=== PATIENT | female | born 1985 | race Two or more races ===

== ENCOUNTER 2017-08-03 11:12 | Emergency (ER) | payer OTHER ==
[~2017-08-03] VITALS: Ht 152.4 cm; Wt 61.7 kg
[2017-08-03 11:38] VITALS: BP 151/112
[2017-08-03] MEDS ORDERED: ACETAMINOPHEN/CODEINE#3 (300/30mg) TAB PO ONE (12:15)
[2017-08-03] MEDS ORDERED: TETANUS-DIPTH-ACEL PERTUSSIS 0.5ML SYRG IM ONE (12:45)
== END 2017-08-03 12:56 | disposition home or self-care (01) ==
LOC: ER 11:12
DX: S01.01XA Laceration without foreign body of scalp, initial encounter (principal); W19.XXXA Unspecified fall, initial encounter; Y93.89 Activity, other specified; Y99.8 Other external cause status; Y92.89 Other specified places as the place of occurrence of the external cause
CPT/HCPCS: 12001; 70450; 81025; 90715; 96372

== ENCOUNTER 2019-09-19 09:39 | Inpatient (IN) | payer OTHER ==
[~2019-09-19] VITALS: Ht 152.4 cm; Wt 65.7 kg
[2019-09-19] MEDS ORDERED: SODIUM CHLORIDE 0.9% 1,000 ML IV ONE (10:09)
[2019-09-19] MEDS ORDERED: METOCLOPRAMIDE HCL 5MG/ml INJ 2ml VIAL IV ONE (10:15)
[2019-09-19] MEDS ORDERED: KETOROLAC TROMETH 15 mg/ml 1ML VL IV ONE (10:15)
[2019-09-19 11:05] LABS: Basophils # (auto) 0 10 ^3/uL (0-0.2); Basophils % (auto) 0.2 % (0.0-2.0); Eosinophils # (auto) 0 10 ^3/uL (0-0.8); Hematocrit 40.8 % (36.0-46.0); Hemoglobin 13.7 g/dL (12.2-16.2); Lymphocytes # (auto) 0.7 10 ^3/uL (0.4-5.4); Lymphocytes % (auto) 5.4 % (10.0-50.0); Mean Corpuscular Hemoglobin 30.1 pg (28.0-32.0); Mean Corpuscular Hgb Conc. 33.5 g/dL (32.0-36.0); Monocytes # (auto) 0.5 10 ^3/uL (0-1.3); Monocytes % (auto) 3.9 % (0.0-12.0); Neutrophils # (auto) 11.7 10 ^3/uL (1.6-8.6); Neutrophils % (auto) 90.5 % (37.0-80.0); Nucleated Red Blood Cells % 0.1 %; Platelet Count (auto) 272 10^3/uL (140-450); Red Blood Cells 4.54 10^6/uL (4.0-5.20); Red Cell Distribution Width 13.3 % (11.8-14.3); White Blood Cell 12.9 10^3/uL (4.4-10.8)
[2019-09-19 11:23] LABS: Albumin 3.8 g/dL (3.4-5.0); Calcium 9.1 mg/dL (8.5-10.1); Magnesium 2.5 mg/dL (1.6-2.6); Potassium 3.7 mmol/L (3.5-5.1)
[2019-09-19 11:27] LABS: Bilirubin, Total 1.4 mg/dL (0.2-1.0); Total Protein 8.8 g/dL (6.4-8.2)
[2019-09-19] MEDS ORDERED: KETOROLAC TROMETH 30 MG/ML 1ML VIAL IV ONE ×2 (11:30)
[2019-09-19 11:44] LABS: Urine Bacteria FEW /hpf (None Seen); Urine Blood 1+ /uL (Negative); Urine Specific Gravity 1.014 (1.001-1.035); Urine WBC 319 /hpf (0 - 5)
[2019-09-19] MEDS ORDERED: cefTRIAXone 1GM/50ML D5W 50 ML IV ONE (12:45)
[2019-09-19] MEDS ORDERED: ONDANSETRON HCL 4 MG/2 ML VIAL IV PRN (13:00)
[2019-09-19] MEDS ORDERED: NITROGLYCERIN 0.4 MG SL TAB SL PRN (13:00)
[2019-09-19] MEDS ORDERED: FAMOTIDINE (10MG/ML) 2ML VL IV ONE (13:00)
[2019-09-19] MEDS ORDERED: MORPHINE SULF INJ 2 MG/ML SYRINGE 1ML IV PRN (13:00)
--- NOTE | 2019-09-19 13:20 | NUR ---
MED/SURG admit from [facility] admitted to MED/SURG unit after SBAR received. Patient oriented to Jen Estrella, primary RN, unit, room, bed, and unit policies regarding patient care and visiting hours. Patient ON ROOM AIR, weighed by bedscale and encouraged to call if they need something. All questions and concerns addressed, patient verbalized understanding. Note:
[2019-09-19] MEDS: metroNIDAZOLE 500MG/100ML 100 ML IV SCH ×2 (14:01→21:30)
[2019-09-19] MEDS: SODIUM CHLORIDE 0.9% 1,000 ML IV SCH ×2 (14:02→22:30)
[2019-09-19 14:05] LABS: INR 1.01 (0.9-1.15)
[2019-09-19 14:32] VITALS: BP 130/82
[2019-09-19] MEDS ORDERED: LEVO25TA6 PO (15:04)
[2019-09-19] MEDS: ACETAMINOPHEN 500 MG TAB PO PRN (15:05)
[2019-09-19] MEDS: MORPHINE SULF INJ 2 MG/ML SYRINGE 1ML IV PRN ×2 (16:42→21:23)
[2019-09-19 17:16] VITALS: BP 126/83
--- NOTE | 2019-09-19 17:44 | NUR ---
PAGED HOSPITALIST PATIENT HAS FEVER 101.5
--- NOTE | 2019-09-19 18:41 | NUR ---
DR. ARGUETA CALLED BACK ORDERS RECEIVED
[2019-09-19] MEDS ORDERED: ACETAMINOPHEN 500 MG TAB PO ONE (18:45)
--- NOTE | 2019-09-19 19:00 | NUR ---
Opening Shift Note Assumed care of patient, awake and alert. No S/S of distress/SOB or pain. Instructed on POC and to call for assist PRN, will continue to monitor for changes Q1hr and PRN.
[2019-09-19 20:00] VITALS: BP 121/77
[2019-09-19 22:00] VITALS: BP 121/77
[2019-09-20] VITALS (13 sets, daily range): BP systolic 98–128; BP diastolic 53–82
[2019-09-20] MEDS: metroNIDAZOLE 500MG/100ML 100 ML IV SCH ×3 (05:33→21:38)
[2019-09-20] MEDS: ACETAMINOPHEN 500 MG TAB PO PRN (05:34)
[2019-09-20 05:54] LABS: Basophils # (auto) 0.1 10 ^3/uL (0-0.2); Basophils % (auto) 0.5 % (0.0-2.0); Eosinophils # (auto) 0 10 ^3/uL (0-0.8); Eosinophils % (auto) 0.1 % (0.0-7.0); Hematocrit 34.7 % (36.0-46.0); Hemoglobin 11.6 g/dL (12.2-16.2); Mean Corpuscular Hemoglobin 29.9 pg (28.0-32.0); Mean Corpuscular Hgb Conc. 33.5 g/dL (32.0-36.0); Mean Corpuscular Volume 89.4 fL (80.0-100.0); Monocytes # (auto) 0.9 10 ^3/uL (0-1.3); Monocytes % (auto) 7.3 % (0.0-12.0); Neutrophils % (auto) 84.1 % (37.0-80.0); Platelet Count (auto) 231 10^3/uL (140-450); Red Blood Cells 3.89 10^6/uL (4.0-5.20); Red Cell Distribution Width 13.5 % (11.8-14.3); White Blood Cell 11.9 10^3/uL (4.4-10.8)
[2019-09-20 06:00] LABS: Potassium 3.6 mmol/L (3.5-5.1)
[2019-09-20 06:03] LABS: INR 1.07 (0.9-1.15); Partial Thromboplastin Time 32.7 sec (23.64-32.05)
[2019-09-20 06:08] LABS: BUN/Creatinine Ratio 8.8; Bilirubin, Total 1.1 mg/dL (0.2-1.0); Calcium 8.6 mg/dL (8.5-10.1); Total Protein 7.1 g/dL (6.4-8.2)
[2019-09-20] MEDS: LEVOTHYROXINE SODIUM 25 MCG TAB PO SCH (06:36)
[2019-09-20] MEDS: MORPHINE SULF INJ 2 MG/ML SYRINGE 1ML IV PRN (06:44)
[2019-09-20] MEDS ORDERED: MIDAZOLAM HCL 1MG/1ML-2 ML VIAL ONE (07:50)
[2019-09-20] MEDS ORDERED: fentaNYL CITRATE 100 MCG/2 ML VL ONE (07:50)
--- NOTE | 2019-09-20 07:51 | NUR ---
Patient taken down to OR. V/S stable. No s/s of distress noted.
[2019-09-20] MEDS ORDERED: ROCURONIUM 10MG/ML 10ML VIAL IV ONE (07:53)
[2019-09-20] MEDS ORDERED: PROPOFOL 10 MG/ML 20 ML IV ONE (07:53)
[2019-09-20] MEDS ORDERED: SUCCINYLCHOLINE CHLORIDE 20 MG/ML 10ML VIAL IV ONE (07:55)
[2019-09-20] MEDS ORDERED: ceFAZolin 1GM/50ML 50 ML IV ONE (08:02)
[2019-09-20] MEDS ORDERED: ONDANSETRON HCL 4 MG/2 ML VIAL ONE (08:35)
[2019-09-20] MEDS ORDERED: METOCLOPRAMIDE HCL 5MG/ml INJ 2ml VIAL ONE (08:36)
[2019-09-20] MEDS ORDERED: DexAMETHasone SOD PHOS 10MG/1ML VIAL INJ ONE (08:36)
[2019-09-20] MEDS ORDERED: POVIDONE IODINE 10 % TOPICAL OINT 30GM TOP ONE (08:41)
[2019-09-20] MEDS ORDERED: GLYCOPYRROLATE 0.2 MG/ML 1ML VIAL ONE (08:49)
[2019-09-20] MEDS: HYDROmorphone HCL 2 MG/ML VL IV PRN ×4 (09:35→21:56)
[2019-09-20] MEDS ORDERED: HYDROmorphone HCL 2 MG/ML VL ONE (09:35)
[2019-09-20] MEDS: SODIUM CHLORIDE 0.9% 1,000 ML IV SCH ×2 (10:00→19:09)
--- NOTE | 2019-09-20 10:20 | NUR ---
Adrienne mukherjee. informed of tachypnea,CO2 level, O2 Saturation MD spoke with Patients regarding patient baseline and POC. Per Md transfer patient to [place]. New orders received see emr for orders. Addendum: 09/20/19 at 1142 by CHAMP DOSHI RN RN wrong patient
[2019-09-20] MEDS: FAMOTIDINE (10MG/ML) 2ML VL IV SCH (10:22)
[2019-09-20] MEDS: PANTOPRAZOLE 40 MG/10 ML VIAL INJ IV SCH (10:23)
[2019-09-20] MEDS: cefTRIAXone 1GM/50ML D5W 50 ML IV SCH (10:26)
[2019-09-20] MEDS: D5W/SOD CHL 0.45%/KCL 20MEQ 1,000 ML IV SCH ×2 (12:00→19:00)
[2019-09-20] MEDS ORDERED: ceFAZolin 1GM/50ML 50 ML IV SCH (14:00)
[2019-09-20] MEDS: ONDANSETRON HCL 4 MG/2 ML VIAL IV PRN ×2 (16:32→21:56)
--- NOTE | 2019-09-20 17:05 | NUR ---
ASSESSED PATIENTS BOWEL SOUNDS NOTICED DRAINAGE ON ABDOMINAL BINDER ON INCISION ABOVE BELLY BUTTON, INFORMED DOCTOR FISCHL OF DRAINAGE, PER MD CHANGE OUT DRESSING.
--- NOTE | 2019-09-20 20:15 | NUR ---
Pt ambulating on East floor. No distress reported.
--- NOTE | 2019-09-20 22:00 | NUR ---
No bowel sounds Dressing clean, dry and intact Abdominal binder in place.
[2019-09-21] MEDS: SODIUM CHLORIDE 0.9% 1,000 ML IV SCH (05:00)
[2019-09-21] MEDS: D5W/SOD CHL 0.45%/KCL 20MEQ 1,000 ML IV SCH ×2 (05:00→14:24)
[2019-09-21 05:46] VITALS: BP 92/59
[2019-09-21 05:47] LABS: Basophils # (auto) 0 10 ^3/uL (0-0.2); Basophils % (auto) 0.2 % (0.0-2.0); Eosinophils # (auto) 0 10 ^3/uL (0-0.8); Hematocrit 31.3 % (36.0-46.0); Hemoglobin 10.5 g/dL (12.2-16.2); Lymphocytes # (auto) 0.8 10 ^3/uL (0.4-5.4); Lymphocytes % (auto) 7.9 % (10.0-50.0); Mean Corpuscular Hemoglobin 30.3 pg (28.0-32.0); Mean Corpuscular Hgb Conc. 33.6 g/dL (32.0-36.0); Mean Corpuscular Volume 90.1 fL (80.0-100.0); Monocytes # (auto) 0.8 10 ^3/uL (0-1.3); Monocytes % (auto) 7.4 % (0.0-12.0); Neutrophils % (auto) 84.5 % (37.0-80.0); Platelet Count (auto) 225 10^3/uL (140-450); Red Blood Cells 3.47 10^6/uL (4.0-5.20); Red Cell Distribution Width 13.5 % (11.8-14.3); White Blood Cell 10.6 10^3/uL (4.4-10.8)
[2019-09-21] MEDS: ONDANSETRON HCL 4 MG/2 ML VIAL IV PRN ×3 (05:52→21:47)
[2019-09-21] MEDS: HYDROmorphone HCL 2 MG/ML VL IV PRN (05:53)
[2019-09-21] MEDS: metroNIDAZOLE 500MG/100ML 100 ML IV SCH ×3 (06:03→21:48)
[2019-09-21 06:07] LABS: BUN/Creatinine Ratio 11.9; Calcium 8.4 mg/dL (8.5-10.1); Potassium 4.1 mmol/L (3.5-5.1)
[2019-09-21] MEDS: LEVOTHYROXINE SODIUM 25 MCG TAB PO SCH (06:44)
--- NOTE | 2019-09-21 06:45 | NUR ---
Bowel sounds present in all 4 quadrants.
[2019-09-21 09:00] VITALS: BP 105/76
[2019-09-21] MEDS: cefTRIAXone 1GM/50ML D5W 50 ML IV SCH (10:11)
[2019-09-21] MEDS: PANTOPRAZOLE 40 MG/10 ML VIAL INJ IV SCH (10:12)
[2019-09-21] MEDS: FAMOTIDINE (10MG/ML) 2ML VL IV SCH (10:12)
[2019-09-21] MEDS ORDERED: HYDROcodone-ACET 5/325MG TAB PO PRN (12:45)
[2019-09-21 12:50] VITALS: BP 119/80
--- NOTE | 2019-09-21 14:08 | NUR ---
IV removal IV DC'd with clean sterile technique, catheter fully intact. Pressure dressing applied to site. Patient tolerated well.
--- NOTE | 2019-09-21 14:08 | NUR ---
IV insertion IV access obtained, via clean sterile technique by inserting 22 gauge catheter at RIGHT FOREARM after 2 attempt(s). IV secured properly. No trauma to site. Patient tolerated well.
[2019-09-21] MEDS: MORPHINE SULF INJ 2 MG/ML SYRINGE 1ML IV PRN (14:25)
[2019-09-21 22:00] VITALS: BP 129/79
[2019-09-22] MEDS: D5W/SOD CHL 0.45%/KCL 20MEQ 1,000 ML IV SCH ×2 (01:00→11:00)
[2019-09-22 05:00] VITALS: BP 102/69
[2019-09-22 05:53] LABS: Basophils # (auto) 0 10 ^3/uL (0-0.2); Basophils % (auto) 0.3 % (0.0-2.0); Eosinophils # (auto) 0.1 10 ^3/uL (0-0.8); Eosinophils % (auto) 0.7 % (0.0-7.0); Hematocrit 31.1 % (36.0-46.0); Hemoglobin 10.5 g/dL (12.2-16.2); Lymphocytes # (auto) 1.7 10 ^3/uL (0.4-5.4); Lymphocytes % (auto) 21.8 % (10.0-50.0); Mean Corpuscular Hemoglobin 30.5 pg (28.0-32.0); Mean Corpuscular Hgb Conc. 33.8 g/dL (32.0-36.0); Monocytes # (auto) 0.9 10 ^3/uL (0-1.3); Monocytes % (auto) 12.1 % (0.0-12.0); Neutrophils # (auto) 5.1 10 ^3/uL (1.6-8.6); Neutrophils % (auto) 65.1 % (37.0-80.0); Platelet Count (auto) 240 10^3/uL (140-450); Red Blood Cells 3.46 10^6/uL (4.0-5.20); Red Cell Distribution Width 13.3 % (11.8-14.3); White Blood Cell 7.8 10^3/uL (4.4-10.8)
[2019-09-22 06:14] LABS: Albumin 2.5 g/dL (3.4-5.0); Calcium 7.9 mg/dL (8.5-10.1); Potassium 3.6 mmol/L (3.5-5.1)
[2019-09-22 06:18] LABS: BUN/Creatinine Ratio 12.5; Bilirubin, Total 0.3 mg/dL (0.2-1.0); Total Protein 6.3 g/dL (6.4-8.2)
[2019-09-22] MEDS: LEVOTHYROXINE SODIUM 25 MCG TAB PO SCH (06:30)
[2019-09-22] MEDS: metroNIDAZOLE 500MG/100ML 100 ML IV SCH ×2 (06:30→14:00)
[2019-09-22] MEDS: cefTRIAXone 1GM/50ML D5W 50 ML IV SCH (08:58)
[2019-09-22] MEDS: PANTOPRAZOLE 40 MG/10 ML VIAL INJ IV SCH (08:59)
[2019-09-22] MEDS: FAMOTIDINE (10MG/ML) 2ML VL IV SCH (08:59)
[2019-09-22 09:00] VITALS: BP 124/81
[2019-09-22 13:00] VITALS: BP 118/72
--- NOTE | 2019-09-22 14:58 | NUR ---
Discharge instructions given as ordered. Encourage to follow up with PMD as instructed. All questions and concerns addressed. Patient verbalized understanding. Medication reconciliation form completed and copy given to patient. . IV removed with catheter intact, pressure dressing applied. Patient taken to vehicle via wheelchair with all personal belongings, accompanied by staff and family member. No distress noted at time of departure.
== END 2019-09-22 14:58 | disposition home or self-care (01) | DRG 418 ==
LOC: ER 09:39 → OVERFLOW 09:40 → EAST 13:21
PROVIDERS: ADMIT Internal Medicine; ATTEND Internal Medicine
PROC: 0FT44ZZ Resection of Gallbladder, Percutaneous Endoscopic Approach (ICD-10-PCS; principal; 2019-09-20 08:09)
DX: K80.00 Calculus of gallbladder with acute cholecystitis without obstruction (principal); E44.0 Moderate protein-calorie malnutrition; N12 Tubulo-interstitial nephritis, not specified as acute or chronic; N28.89 Other specified disorders of kidney and ureter; D72.829 Elevated white blood cell count, unspecified; K82.8 Other specified diseases of gallbladder; D63.8 Anemia in other chronic diseases classified elsewhere; E03.9 Hypothyroidism, unspecified; Z79.899 Other long term (current) drug therapy; Z68.28 Body mass index [BMI] 28.0-28.9, adult
CPT/HCPCS: 36415; 71045; 76705; 80048; 80053; 81001; 81025; 82247; 83690; 83735; 84443; 85025; 85610; 85730; 86850; 86900; 86901; 87040; 87086; 96365; 96367; 96375; C9113; G0378; J0330; J0690; J0696; J1100; J1885; J2250; J2405; J2704; J3490

== ENCOUNTER → 2019-10-07 | Outpatient (CLI) | payer OTHER ==
[~2019-10-07] MED LIST: LEVO25TA6 PO
[2019-10-07 09:09] LABS: Urine Bacteria FEW /hpf (None Seen); Urine Blood Negative /uL (Negative); Urine Specific Gravity 1.014 (1.001-1.035); Urine WBC 1 /hpf (0 - 5)
== END | disposition home or self-care (01) ==
LOC: LAB 08:53
PROVIDERS: ATTEND Internal Medicine
DX: N39.0 Urinary tract infection, site not specified (principal)
CPT/HCPCS: 81001; 87086